=== PATIENT | female | born 1935 | race Caucasian/White ===

== ENCOUNTER 2022-03-14 10:31 | Outpatient (REF) | payer OTHER, SELFPAY ==
--- NOTE | 2022-03-14 | PFT_ITS ---
FLOWS: FEV1 93% of predicted at 1.71 L. FVC 86% of predicted at 2.15 L. FEV1 to FVC ratio of 0.79. No bronchodilator response except in small to medium airways. LUNG VOLUMES: Total lung capacity 81% of predicted at 4.30 L. Residual volume 86% of predicted at 2.26 L. Slow vital capacity 76% of predicted at 2.04 L. Expiratory reserve volume 118% of predicted at 0.56 L. Diffusion capacity is moderately decreased, diffusion capacity corrects to normal after adjustment for alveolar ventilation. IMPRESSION: No obstructive or restrictive ventilatory defect. No bronchodilator response except in small to medium airways. Tobi Ramey MD AP/MODL / [id number]
== END 2022-03-14 10:32 | disposition home or self-care (01) ==
LOC: HO.RESP 10:31
PROVIDERS: Visit Provider Family Medicine
DX: R09.89 Other specified symptoms and signs involving the circulatory and respiratory systems (principal)
CPT/HCPCS: 94060; 94727; 94729